=== PATIENT | female | born 1950 | race Caucasian/White ===

== ENCOUNTER → 2023-09-02 08:21 | Outpatient (REF) | payer MEDICARE, SELFPAY | LOC: MRI 3T 08:21 | PROVIDERS: ATTENDING PHYSICIAN Internal Medicine; FAMILY PHYSICIAN Nurse Practitioner Family | DX: K86.2 Cyst of pancreas (principal) | CPT/HCPCS: 74183; A9575 ==

== ENCOUNTER → 2024-01-06 06:40 | Day surgery (SDC) | payer MEDICARE, SELFPAY | LOC: GI 06:40 | PROVIDERS: ATTENDING PHYSICIAN Internal Medicine | DX: Z12.11 Encounter for screening for malignant neoplasm of colon (principal); D12.0 Benign neoplasm of cecum; D12.2 Benign neoplasm of ascending colon; D12.3 Benign neoplasm of transverse colon; K63.5 Polyp of colon; D12.8 Benign neoplasm of rectum; K64.9 Unspecified hemorrhoids; Z80.0 Family history of malignant neoplasm of digestive organs | CPT/HCPCS: 45385; 45380; 45381; 88305 ==

== ENCOUNTER → 2024-02-23 10:41 | Outpatient (REF) | payer MEDICARE, SELFPAY | LOC: HWWDC 10:41 | PROVIDERS: ATTENDING PHYSICIAN Nurse Practitioner Family | DX: Z12.31 Encounter for screening mammogram for malignant neoplasm of breast (principal) | CPT/HCPCS: 77063; 77067 ==

== ENCOUNTER 2024-03-23 06:21 | Day surgery (SDC) | payer MEDICARE, SELFPAY ==
[2024-03-23 11:51] VITALS: BMI 22.6
[2024-03-23 12:06] VITALS: BMI 22.6
[2024-03-23 12:07] VITALS: BP 152/73
== END 2024-03-23 14:50 | disposition home or self-care (01) ==
LOC: GI 06:21
PROVIDERS: ATTENDING PHYSICIAN Internal Medicine Gastroenterology
DX: D12.6 Benign neoplasm of colon, unspecified (principal); K64.0 First degree hemorrhoids; D12.2 Benign neoplasm of ascending colon; D12.3 Benign neoplasm of transverse colon
CPT/HCPCS: 45390; 45385; 88305

== ENCOUNTER 2024-06-13 12:15 | Emergency (ER) | payer MEDICARE, SELFPAY ==
[2024-06-13 12:15] VITALS: BMI 23.0
[2024-06-13 12:24] VITALS: BP 212/89
--- NOTE | 2024-06-13 12:28 | ED.GENMED ---
ED Provider Triage
<SHILO Thomas - Last Filed: 06/13/24 12:31>
-
Patient seen by provider in Triage?: Seen in Triage
Attestation: A medical screening examination has been initiated by a qualified medical provider. Based on the assessment performed at this time, it has been determined that an emergent medical condition may exist and the patient has been informed
that further medical evaluation and possible additional diagnostic testing may be needed.
HPI: Patient is a 74-year-old female who reports her blood pressure has been elevated off and on for months. She is being followed by family doctor for this. Today she did not feel well and took her blood pressure was over 200s. She has had
intermittent left hand tingling since this morning as well and does feel slight headache. No chest pain or trouble breathing. Pt did take her BP meds this am.
GENERAL: Alert , in no apparent distress
EYE: No visual abnormalities.
NECK: Trachea midline
ENT: No visible abnormalities.
LUNGS: No acute respiratory distress
NEUROLOGICAL: Alert and oriented
SKIN: Skin intact. No visible changes.
MUSCULOSKELETAL: Moving extremities normally
PSYCH: Normal and appropriate interaction.
This is a medical evaluation conducted in person to initiate diagnostic evaluation and provide initial therapeutics. Please see further documentation by the treating clinician.
Will order CT head and labs along with EKG
History of Present Illness
<SHILO Thomas - Last Filed: 06/13/24 12:31>
General
Chief Complaint: Blood Pressure Problem
Time Seen by Provider: 06/13/24 16:23
<Bo Newton DO, Resident - Last Filed: 06/13/24 18:01>
History of Present Illness
History of Present Illness:
74 female with past medical history significant for hypertension, hyperlipidemia, hypothyroidism presents for elevated blood pressure, systolics measured in the 200s. Patient reports feeling 'not right' this morning, she endorsed some transient
left hand tingling as well as a headache and dizziness. She records her blood pressures at home, she reports her pressures are uncontrolled at home, and she has an appoint with her primary care physician tomorrow regarding blood pressure medication
adjustment. Currently she takes hydrochlorothiazide and lisinopril.
Past History
<SHILO Thomas - Last Filed: 06/13/24 12:31>
Past History
ED Past Medical History: None
ED Past Surgical History:
Social History
Tobacco: Non-smoker
<Bo Newton DO, Resident - Last Filed: 06/13/24 18:01>
Past History
ED Past Medical History: HTN, Hypercholesterolemia and Hypothyroidism
Review of Systems
<Bo Newton DO, Resident - Last Filed: 06/13/24 18:01>
Review of Systems
Constitutional: Reports no symptoms
Cardiac: Reports no symptoms
ABD/GI: Reports no symptoms
Neurological: Reports dizzy, headache and other (Transient left hand tingling)
Phy Exam
<Bo Newton DO, Resident - Last Filed: 06/13/24 18:01>
General Physical Exam
General Presentation: well appearing and no apparent distress
General Skin: dry
General Mental: alert
Cardiovascular Exam
Cardiovascular Exam: regular rate/rhythm, no edema and no murmur
Pulmonary Exam
Pulmonary Exam: lungs clear, no respiratory distress, chest non tender and no crackles
Gastrointestinal Exam
Gastrointestinal Exam: non tender, soft and non distended
Neurological Exam
Neurological Exam: alert, oriented x3 and no sensory deficits
Course
<SHILO Thomas - Last Filed: 06/13/24 12:31>
Orders/Labs/Results
Orders:
Orders
06/13/24 12:30
Electrocardiogram (*1) Stat
Reason for Study: Other
Other Reason for Exam: chest pain
CT Head W/o Iv Contrast Urgent
Comment:
Reason For Exam: h/a and elevated bp
EKG- Treatment ONCE
06/13/24 12:44
Complete Blood Count/With Diff Urgent
Comprehensive Metabolic Panel Urgent
06/13/24 16:42
Electrocardiogram (*1) Urgent
Reason for Study: Hypertension, Benign
EKG- Treatment ONCE
06/13/24 17:02
Troponin I Urgent
Abnormal Lab Results
06/13/24
12:44
Abs Immat Gran (auto) 0.1 H 10^3/uL
(0-0.05)
Absolute Monos (auto) 0.9 H 10^3/uL
(0.1-0.6)
Monocytes % 9.4 H %
(1.7-9.3)
Sodium 134 L mmol/L
(135-145)
Chloride 96 L mmol/L
(98-107)
Glucose 108 H mg/dl
(70-99)
06/13/24 12:44
06/13/24 12:44
Vital Signs
Initial and Last Documented VS:
Initial Vital Signs
Temp Pulse Resp BP Pulse Ox
98.2 F 77 20 212/89 100
06/13/24 12:24 06/13/24 12:24 06/13/24 12:24 06/13/24 12:24 06/13/24 12:24
Last Documented Vital Signs
Temp Pulse Resp BP Pulse Ox
97.8 F 64 16 186/93 100
06/13/24 14:23 06/13/24 17:45 06/13/24 14:23 06/13/24 16:48 06/13/24 17:45
<Bo Newton DO, Resident - Last Filed: 06/13/24 18:01>
Orders/Labs/Results
Orders:
Orders
06/13/24 12:30
Electrocardiogram (*1) Stat
Reason for Study: Other
Other Reason for Exam: chest pain
CT Head W/o Iv Contrast Urgent
Comment:
Reason For Exam: h/a and elevated bp
EKG- Treatment ONCE
06/13/24 12:44
Complete Blood Count/With Diff Urgent
Comprehensive Metabolic Panel Urgent
06/13/24 16:42
Electrocardiogram (*1) Urgent
Reason for Study: Hypertension, Benign
EKG- Treatment ONCE
06/13/24 17:02
Troponin I Urgent
Abnormal Lab Results
06/13/24
12:44
Abs Immat Gran (auto) 0.1 H 10^3/uL
(0-0.05)
Absolute Monos (auto) 0.9 H 10^3/uL
(0.1-0.6)
Monocytes % 9.4 H %
(1.7-9.3)
Sodium 134 L mmol/L
(135-145)
Chloride 96 L mmol/L
(98-107)
Glucose 108 H mg/dl
(70-99)
06/13/24 12:44
06/13/24 12:44
Vital Signs
Initial and Last Documented VS:
Initial Vital Signs
Temp Pulse Resp BP Pulse Ox
98.2 F 77 20 212/89 100
06/13/24 12:24 06/13/24 12:24 06/13/24 12:24 06/13/24 12:24 06/13/24 12:24
Last Documented Vital Signs
Temp Pulse Resp BP Pulse Ox
97.8 F 64 16 186/93 100
06/13/24 14:23 06/13/24 17:45 06/13/24 14:23 06/13/24 16:48 06/13/24 17:45
<Ronak Britton, DO - Last Filed: 06/13/24 18:10>
Orders/Labs/Results
Orders:
Orders
06/13/24 12:30
Electrocardiogram (*1) Stat
Reason for Study: Other
Other Reason for Exam: chest pain
CT Head W/o Iv Contrast Urgent
Comment:
Reason For Exam: h/a and elevated bp
EKG- Treatment ONCE
06/13/24 12:44
Complete Blood Count/With Diff Urgent
Comprehensive Metabolic Panel Urgent
06/13/24 16:42
Electrocardiogram (*1) Urgent
Reason for Study: Hypertension, Benign
EKG- Treatment ONCE
06/13/24 17:02
Troponin I Urgent
Abnormal Lab Results
06/13/24
12:44
Abs Immat Gran (auto) 0.1 H 10^3/uL
(0-0.05)
Absolute Monos (auto) 0.9 H 10^3/uL
(0.1-0.6)
Monocytes % 9.4 H %
(1.7-9.3)
Sodium 134 L mmol/L
(135-145)
Chloride 96 L mmol/L
(98-107)
Glucose 108 H mg/dl
(70-99)
06/13/24 12:44
06/13/24 12:44
Vital Signs
Initial and Last Documented VS:
Initial Vital Signs
Temp Pulse Resp BP Pulse Ox
98.2 F 77 20 212/89 100
06/13/24 12:24 06/13/24 12:24 06/13/24 12:24 06/13/24 12:24 06/13/24 12:24
Last Documented Vital Signs
Temp Pulse Resp BP Pulse Ox
97.8 F 64 16 186/93 100
06/13/24 14:23 06/13/24 17:45 06/13/24 14:23 06/13/24 16:48 06/13/24 17:45
<Bo Newton DO, Resident - Last Filed: 06/13/24 18:01>
MDM/Problems Addressed
Differential Diagnosis Includes:
Hypertensive urgency versus migraine/headache
MDM/Problems Addressed:
#Hypertensive urgency
Systolics in the 200 on admission to ED, currently pressures improved with systolics 130s
Patient has not required any antihypertensive in the emergency department
Patient was endorsing headache and dizziness
Patient denies numbness, weakness, vision loss, no abdominal or chest discomfort
EKG demonstrated sinus rhythm with frequent PVCs and PACs with nonspecific ST and T wave abnormalities
Will check troponins and repeat EKG
Noncontrast CT head demonstrated no acute intracranial hemorrhage or large vessel infarction
Patient endorses flushing and headaches coinciding with elevated pressures, possibility for occult pheochromocytoma. Our suspicion is low, and will hold off on plasma metanephrine levels
Constellation of symptoms could be explained by migraine, however patient has no history of migraines
<Bo Newton DO, Resident - Last Filed: 06/13/24 18:01>
*Critical Care Note
Total Time (30-74mins, 75-104mins- exclusive of procedures): Not Applicable
<Ronak Britton DO - Last Filed: 06/13/24 18:10>
Update Note
Update Note:
6 PM troponin negative and patient remains symptom-free. Patient feels comfort going home and discussed outpatient follow-up with PCP for further evaluation
ED Attending Note
<SHILO Thomas - Last Filed: 06/13/24 12:31>
-
Portions of this chart may have been created with voice recognition software.� Occasional wrong word or��sound alike� substitutions may have occurred due to the inherent limitations of voice recognition software.
<Ronak Britton, DO - Last Filed: 06/13/24 18:10>
ED Attending Note
Patient seen and examined by attending physician: Yes
I performed a history and physical exam of patient and discussed management with resident, I reviewed resident's note and agree with documented findings and plan of care.: Yes
ED Attending Note:
I have seen and evaluated the patient with a [id number] encounter. I have spoken to the resident and involved in the medical history, the physical exam, medical decision making.
Evaluation and management service: agree unless noted differently below.
Results interpretation: agree unless noted differently below.
Focused HPI: 74-year-old female presenting for evaluation of elevated blood pressure. Patient states her blood pressure is constantly going up and down. She is compliant with lisinopril and hydrochlorothiazide. She was concerned because her blood
pressure was over 200 today and she had mild dizziness. She then complained of left arm tingling. All symptoms have since resolved
Physical exam: Sitting in bed comfortably. Heart regular in rhythm. No acute distress
Medical Decision Making: CT was performed. I discussed CT head shows evidence of likely meningioma. Discussed outpatient MRI. Given that the blood pressure elevation is resolving without intervention, we discussed not adding more medicine.
Patient agrees. Given the tingling, will obtain troponin. Initial EKG showed PVCs. Will repeat
Discharge Plan
Departure
Patient Disposition: Home (Routine Discharge)
Date of Disposition: 06/13/24
Time of Disposition: 18:09
Patient with high blood pressure during this ER visit?: Yes
Discharge Problem:
HTN (hypertension)
Instructions: High Blood Pressure (DC), BLOOD PRESSURE
Prescriptions:
No Action
calcium 600 mg Capsule
1,200 mg PO DAILY
atorvastatin 10 mg Tablet
10 mg PO HS
clonazepam 0.5 mg Tablet
0.5 mg PO PRN PRN (Reason: anxiety)
levothyroxine 75 mcg Tablet
75 mcg PO DAILY
levothyroxine 50 mcg Tablet
50 mcg PO DAILY
pramipexole 0.125 mg Tablet
0.125 mg PO HS
lisinopril 2.5 mg Tablet
2.5 mg PO DAILY
cholecalciferol (vitamin D3) [Vitamin D3] 25 mcg (1,000 unit) Capsule
25 mcg PO DAILY
escitalopram oxalate 5 mg Tablet
5 mg PO DAILY
hydrochlorothiazide 12.5 mg Tablet
12.5 mg PO DAILY
Sutab 1.479-0.188- 0.225 gram Tablet
0 tab PO PER PKG DIR
Referrals:
Daria Sheriff CRNP [Family Provider] -
Activity Restrictions/Additional Instructions:
Please return for any worsening symptoms.
You may return at any time if you have further concerns.
Please follow up with your doctor at the first available appointment, preferably this week. Please discuss alternative diagnosis such as pheochromocytoma. Please discuss the incidental meningioma found on CT head. Your doctor will likely want to
order an brain MRI.
Thank you for choosing [facility].
Interventions
Interventions:
*Risk Screen - Suicide Last Done: 06/13/24 12:24
*General Assessment Last Done: 06/13/24 12:24
*Neglect/Abuse Screening Last Done: 06/13/24 12:24
ED- Fall Risk Assessment Last Done: 06/13/24 17:09
ED- Cardiac Assessment Last Done: 06/13/24 17:09
ED- Neurological Assessment Last Done: 06/13/24 17:09
ED- Pulmonary Assessment Last Done: 06/13/24 17:09
Discharge Date and Time
Print Language: THAI
[2024-06-13 12:53] LABS: % Basophils 0.7 % (0-2); % Eosinophils 1.8 % (0-6); % Immature Granulocytes 0.5 % (0-0.5); % Lymphocytes 21.6 % (20.5-51.1); % Monocytes 9.4 % (1.7-9.3); Absolute Basophils 0.1 10^3/uL (0-0.2); Absolute Eosinophils 0.2 10^3/uL (0-0.7); Absolute Immature Granulocytes 0.1 10^3/uL (0-0.05); Absolute Lymphocytes 2.1 10^3/uL (1.2-3.4); Absolute Monocytes 0.9 10^3/uL (0.1-0.6); Absolute Neutrophils 6.3 10^3/uL (1.4-6.5); Hematocrit 44.1 % (37.0-47.0); Hemoglobin 15.3 g/dL (12.0-16.0); Mean Corp Hgb Conc. 34.7 g/dL (33.0-37.0); Mean Corpuscular Hgb 30.5 pg (27.0-31.0); Mean Platelet Volume 9.1 fL (7.4-10.4); Nucleated Red Blood Cells % 0 %; Platelet Count 314 10^3/uL (130-400); Red Blood Cell Count 5.01 10^6/uL (4.20-5.40); Red Cell Dist. Width 12.4 % (11.5-14.5); White Blood Cell Count 9.5 10^3/uL (4.8-10.8)
[2024-06-13 13:10] LABS: ALT (SGPT) 23 U/L (0-35); AST (SGOT) 34 U/L (14-36); Albumin 4.8 g/dl (3.5-5.0); Alkaline Phosphatase 98 U/L (38-126); Blood Urea Nitrogen 13 mg/dl (7-17); Calcium 10.2 mg/dl (8.4-10.2); Carbon Dioxide 26 mmol/L (22-30); Chloride 96 mmol/L (98-107); Glucose 108 mg/dl (70-99); Potassium 3.9 mmol/L (3.5-5.1); Sodium 134 mmol/L (135-145); Total Bilirubin 0.9 mg/dl (0.2-1.3); Total Protein 7.6 g/dl (6.3-8.2); eGFR > 60.00
[2024-06-13 14:23] VITALS: BP 131/85
[2024-06-13 16:48] VITALS: BP 186/93
[2024-06-13 17:32] LABS: Troponin I < 0.012 ng/ml
[2024-06-13 17:57] VITALS: BP 140/90
[2024-06-13 18:00] VITALS: BP 147/85
== END 2024-06-13 18:19 | disposition home or self-care (01) ==
LOC: EMR 12:15
PROVIDERS: Nurse Practitioner; EMERGENCY PHYSICIAN Student in an Organized Health Care Education/Training Program; FAMILY PHYSICIAN Nurse Practitioner Family
DX: I10 Essential (primary) hypertension (principal); R42 Dizziness and giddiness; R51.9 Headache, unspecified; R20.2 Paresthesia of skin; E78.00 Pure hypercholesterolemia, unspecified; E03.9 Hypothyroidism, unspecified; Z79.899 Other long term (current) drug therapy
CPT/HCPCS: 99284; 70450; 80053; 84484; 85025; 93005

== ENCOUNTER → 2024-07-27 11:00 | Outpatient (REF) | payer MEDICARE, SELFPAY | LOC: MRI 3T 11:00 | PROVIDERS: ATTENDING PHYSICIAN Nurse Practitioner Family | DX: D32.9 Benign neoplasm of meninges, unspecified (principal) | CPT/HCPCS: 70553; A9575 ==

== ENCOUNTER 2024-09-07 06:14 | Day surgery (SDC) | payer MEDICARE, SELFPAY | END 2024-09-07 08:34 | disposition home or self-care (01) | LOC: GI 06:14 | PROVIDERS: ATTENDING PHYSICIAN Internal Medicine | DX: Z12.11 Encounter for screening for malignant neoplasm of colon (principal); Z86.0100 Personal history of colon polyps, unspecified | CPT/HCPCS: G0105 ==

== ENCOUNTER 2024-09-08 06:19 | Day surgery (SDC) | payer MEDICARE, SELFPAY | END 2024-09-08 16:40 | disposition home or self-care (01) | LOC: GI 06:19 | PROVIDERS: ATTENDING PHYSICIAN Internal Medicine | DX: Z12.11 Encounter for screening for malignant neoplasm of colon (principal); Q43.8 Other specified congenital malformations of intestine; K64.9 Unspecified hemorrhoids; K63.5 Polyp of colon; K63.89 Other specified diseases of intestine; Z86.0100 Personal history of colon polyps, unspecified | CPT/HCPCS: 45380; 88305 ==

== ENCOUNTER → 2024-10-25 12:32 | Outpatient (REF) | payer MEDICARE, SELFPAY | LOC: RCS 12:32 | PROVIDERS: ATTENDING PHYSICIAN Nurse Practitioner Family | DX: R07.9 Chest pain, unspecified (principal) | CPT/HCPCS: 93017; 93350 ==

== ENCOUNTER → 2025-02-27 09:47 | Outpatient (REF) | payer MEDICARE, SELFPAY | LOC: HWWDC 09:47 | PROVIDERS: ATTENDING PHYSICIAN Internal Medicine Endocrinology, Diabetes & Metabolism; FAMILY PHYSICIAN Nurse Practitioner Family | DX: E03.9 Hypothyroidism, unspecified (principal); Z12.31 Encounter for screening mammogram for malignant neoplasm of breast; M81.0 Age-related osteoporosis without current pathological fracture | CPT/HCPCS: 77063; 77067; 77080 ==